=== PATIENT | female | born 1980 | race Caucasian/White ===

== ENCOUNTER 2019-06-01 08:38 | Outpatient (CLI) | payer OTHER, SELFPAY ==
--- NOTE | 2019-06-01 08:45 | US_ITS ---
WS: [id number] Thyroid ultrasound, 06/01/2019 Clinical Data: HYPOTHYROIDISM Comparison: None. Findings: The right lobe of thyroid measures 5.3 cm x 1.3 cm x 1.3 cm. There is a nodule in the middle of the r ight lobe measuring 0.46 x 0.49 x 0.69 cm. The left lobe measures 4.7 cm x 1.1 cm x 1.3 cm. No left lobe nodules are seen. The isthmus measured 0.3 mm. The echotexture of the thyroid is uniform. No cysts are seen. US/US thyroid [id number] Impression: 1. Small nodule in middle of right lobe of the thyroid. 2. Isthmus and left lobe of the thyroid are normal.
== END 2019-06-01 08:39 | disposition home or self-care (01) ==
PROVIDERS: Family Provider Internal Medicine; PCP Internal Medicine; Visit Provider Internal Medicine
DX: E03.9 Hypothyroidism, unspecified (principal); E04.1 Nontoxic single thyroid nodule
CPT/HCPCS: 76536